=== PATIENT | female | born 1980 | race Two or more races ===

== ENCOUNTER → 2017-06-29 | Emergency (ER) | payer OTHER ==
[~2017-06-29] VITALS: Ht 162.6 cm; Wt 102.1 kg
== END | disposition home or self-care (01) ==
LOC: ER 19:23
DX: J06.9 Acute upper respiratory infection, unspecified (principal); J40 Bronchitis, not specified as acute or chronic

== ENCOUNTER 2017-12-27 09:40 | Emergency (ER) | payer OTHER ==
[~2017-12-27] VITALS: Ht 162.6 cm; Wt 103.9 kg
== END 2017-12-27 10:51 | disposition home or self-care (01) ==
LOC: ER 09:40
DX: S83.8X1A Sprain of other specified parts of right knee, initial encounter (principal); X50.3XXA Overexertion from repetitive movements, initial encounter; Y93.89 Activity, other specified; Y92.89 Other specified places as the place of occurrence of the external cause; Y99.8 Other external cause status

== ENCOUNTER 2017-12-27 14:38 | Outpatient (CLI) | payer OTHER | END 2017-12-27 15:21 | disposition home or self-care (01) | LOC: RAD 501 14:38 | DX: M25.561 Pain in right knee (principal); M25.562 Pain in left knee ==

== ENCOUNTER 2018-01-03 14:19 | Outpatient (CLI) | payer OTHER | END 2018-01-03 14:38 | disposition home or self-care (01) | LOC: LAB 14:19 | DX: D64.89 Other specified anemias (principal); E88.89 Other specified metabolic disorders; D68.8 Other specified coagulation defects; N39.0 Urinary tract infection, site not specified; A49.02 Methicillin resistant Staphylococcus aureus infection, unspecified site; Z76.89 Persons encountering health services in other specified circumstances; I49.8 Other specified cardiac arrhythmias ==

== ENCOUNTER 2018-01-14 05:53 | Day surgery (SDC) | payer OTHER | END 2018-01-14 14:25 | disposition home or self-care (01) | LOC: CIR.AMB 05:53 | DX: M23.351 Other meniscus derangements, posterior horn of lateral meniscus, right knee (principal); M94.261 Chondromalacia, right knee; M66.861 Spontaneous rupture of other tendons, right lower leg; M22.11 Recurrent subluxation of patella, right knee; M22.41 Chondromalacia patellae, right knee; M23.611 Other spontaneous disruption of anterior cruciate ligament of right knee; S83.01 Lateral subluxation and dislocation of patella; S83.511S Sprain of anterior cruciate ligament of right knee, sequela ==

== ENCOUNTER 2018-05-21 08:29 | Outpatient (CLI) | payer OTHER | END 2018-05-21 09:11 | disposition home or self-care (01) | LOC: RAD 501 08:29 | DX: M23.611 Other spontaneous disruption of anterior cruciate ligament of right knee (principal) ==

== ENCOUNTER 2019-10-07 10:01 | Emergency (ER) | payer OTHER ==
[~2019-10-07] VITALS: Ht 162.6 cm; Wt 106.6 kg
== END 2019-10-07 11:04 | disposition home or self-care (01) ==
LOC: ER 10:01
DX: H66.91 Otitis media, unspecified, right ear (principal)

== ENCOUNTER 2021-04-09 13:22 | Emergency (ER) | payer OTHER ==
[~2021-04-09] VITALS: Ht 162.6 cm; Wt 113.4 kg
== END 2021-04-09 14:43 | disposition home or self-care (01) ==
LOC: ER 13:22
DX: J04.0 Acute laryngitis (principal); J03.90 Acute tonsillitis, unspecified